=== PATIENT | female | born 1990 | race Caucasian/White ===

== ENCOUNTER 2017-04-03 11:18 | Observation (INO) | payer BC, MEDICAID ==
[2017-04-03 12:17] LABS: ABS Basophils 0 10^3/ul (0-0.2); ABS Eosinophils 0 10^3/ul (0-0.6); ABS Lymphocytes 1.7 10^3/ul (1.0-4.8); ABS Monocytes 0.7 10^3/ul (0-0.8); ABS Neutrophils 9.6 10^3/ul (1.5-7.7); ABS Nucleated RBC 0 10^3/ul; Eosinophil % 0.3 % (0-6); Hematocrit 39 % (35-47); Hemoglobin 13.2 g/dl (12.0-16.0); Lymphocyte % 13.8 % (25-47); Mean Corpuscular HGB Conc 34 g/dl (31-36); Mean Corpuscular Hemoglobin 30 pg (27-31); Mean Corpuscular Volume 88 fL (80-97); Mean Platelet Volume 10 um3 (7.4-10.4); Nucleated Red Blood Cells % 0; Platelet Count 233 10^3/ul (150-450); Red Blood Count 4.41 10^6/ul (4.0-5.4); Red Cell Distribution Width 13 % (10.5-15)
[2017-04-03 12:21] LABS: Urine Appearance Clear; Urine Blood Negative (Negative); Urine Color Yellow; Urine Ketones Negative (Negative); Urine Protein Negative (Negative); Urine Specific Gravity 1.006 (1.010-1.030); Urine Urobilinogen Negative (Negative)
[2017-04-03 12:30] LABS: EGFR Non-African American 102.3 (>60)
[2017-04-03] MEDS ORDERED: Labetalol TAB* 100 MG ONE (13:10)
[2017-04-03] MEDS: Labetalol TAB* 100 MG PO SCH ×2 (19:22→20:47)
[2017-04-04] MEDS ORDERED: Labetalol TAB* 100 MG PO ONE (01:50)
[2017-04-04] MEDS ORDERED: Labetalol TAB* 100 MG ONE (01:52)
[2017-04-04] MEDS: Labetalol TAB* 100 MG PO SCH ×2 (08:37→21:07)
[2017-04-04] MEDS: Betamethasone INJ* 6 MG/ML 5 ML VIAL (30 MG) IM ONE (10:07)
--- NOTE | 2017-04-04 13:47 | RAD ---
HISTORY: Routine evaluation of growth and biophysical parameters. Other medical history includes hypertension and diabetes. Gestational age indicated by first trimester ultrasound (images not available at the time of this interpretation) is 35 weeks and 6 days. Multiple transabdominal real time images of the gravid uterus were obtained. This exam demonstrates a single intrauterine in the breech presentation. heart and limb motion were noted. The heart rate was 153 beats per minute. The placenta was located anteriorly. There is no placenta previa. The amniotic fluid volume appeared to be within normal limits with an amniotic fluid index of 13.9 cm. Biparietal diameter (cm) 8.9 which corresponds to a gestational age of 36 weeks and 1 day. Head circumference (cm) 35.7 which corresponds to a gestational age of 41 weeks and 5 days. Abdominal circumference(cm) 31.7 which corresponds to a gestational age of 35 weeks and 5 days. Femur length (cm) 6.4 which corresponds to a gestational age of 33 weeks and 3 days. The composite estimated gestational age was 37 weeks and 4 days. The estimated weight at this time is 6 lbs. 0 oz. IMPRESSION: 1. Biophysical score is 8 out of 8. 2. Growth parameters yielding an average gestational age of 37 weeks and 4 days. The L wire amongst the growth parameters is the head circumference measuring 35.6 cm corresponding to a gestational age of 41 weeks and 5 days. This is between 5 and 8 weeks greater than the remaining growth parameters. 3. The gestation is currently in the breech presentation.
--- NOTE | 2017-04-04 21:04 | HP ---
ADMISSION HISTORY AND PHYSICAL: DATE OF ADMISSION: 04/03/17 HISTORY OF PRESENT ILLNESS: Mrs. Callahan is a 27-year-old with an intrauterine at 35 and 6/7 weeks estimated gestational age who was sent Labor and Delivery by Dr. Navin Trinidad for evaluation of possible hypertension at the office to rule out preeclampsia. The patient's care has been complicated by morbid obesity. She has a BMI of 53 and also the patient has diabetes that is diet controlled. Please refer to the patient's full record in the chart. PAST MEDICAL HISTORY: Obesity. PAST SURGICAL HISTORY: None. OBSTETRICAL HISTORY: This is her second . She had one prior . GYNECOLOGIC HISTORY: She had history of Chlamydia in 2010. SOCIAL HISTORY: Denies cigarette, alcohol, or drug use. FAMILY HISTORY: Significant for hypothyroidism, COPD, and multiple sclerosis. REVIEW OF SYSTEMS: The patient denied any constitutional signs of symptoms. No fever. No chills. No gastrointestinal or urinary signs or symptoms. She denies headaches, changes in vision, or abdominal pain. Admitted to palpable movements. PHYSICAL EXAMINATION GENERAL: The patient was in Labor and Delivery bed. Awake and oriented x3, in no apparent distress. VITAL SIGNS: Temperature of 99.5, pulse ox of 96% on room air, respiratory rate of 20, the pulse was in 70 to 80s, and her blood pressure ranged systolically from 154 to 170 and diastolics were 81 to 113. and it was noted to be reactive. LUNGS: Clear to auscultation bilaterally. ABDOMEN: She had no CVA tenderness bilaterally. Her abdomen was gravid, soft, nontender with palpable movement. EXTREMITIES: Reflexes are +2 at the upper extremities. Lower extremity reflexes are absent with no clonus. LABORATORY DATA: She had a complete comprehensive metabolic panel, both of which were within normal limits. Urinalysis showed no proteinuria. IMPRESSION: This is a morbidly obese patient with gestational diabetes with elevated blood pressures at the office and here in Labor and Delivery possibly -induced hypertension, which is preeclampsia. She is to be admitted for observation. A 24-hour urine collection is being obtained for evaluation of proteinuria. She is also to be started on labetalol 100 mg p.o. twice a day for hypertension and we will continue to observe and treat the patient based on her clinical signs and symptoms. [id number]/[facility] #: [id number] [facility]
[2017-04-05] MEDS: Labetalol TAB* 100 MG PO SCH (08:51)
[2017-04-05] MEDS: Betamethasone INJ* 6 MG/ML 5 ML VIAL (30 MG) IM ONE (10:05)
--- NOTE | 2017-04-06 03:46 | DS ---
DISCHARGE SUMMARY: DATE OF ADMISSION: 04/03/17 DATE OF DISCHARGE: 04/05/17 HOSPITAL COURSE: This patient is a 27-year-old, 1 para 0, sent from the office at 35 plus 6 weeks gestation with significantly elevated blood pressures. On presentation, she continued to have moderate to severely elevated blood pressures. Blood testing all returned within normal limits. monitoring was very reassuring and a 24-hour urine protein collection was started. A 24-hour urine protein returned on hospital day#2 at 290 mg. A ultrasound was performed and weight was measured at about 6 pounds. Amniotic fluid was 13.9 and the fetus was still in the breech presentation. The patient was initially started on labetalol 100 mg b.i.d. On bedrest, the patient's blood pressures came down to 120s to 140s/70s to 90s. monitoring remained very reassuring during her hospital stay. She is discharged to home in stable condition on hospital day#3 with plans for close followup. DISCHARGE PHYSICAL EXAMINATION: Vital Signs: Blood pressure 140s/80s. heart tracing reactive with no decelerations and many accelerations. No significant contractions noted. Abdomen: Soft and nontender. LABORATORY INFORMATION: Hematocrit 39, platelets 233. Creatinine 0.68, uric acid 4.4. AST 12, ALT 9. 24-hour urine protein 290 mg. DISCHARGE INSTRUCTIONS: The patient was instructed to return to Labor and Delivery in 3 days, on 04/08/17, for repeat blood pressure monitoring, monitoring, and repeat labs. She will also return a 24-hour urine collection for protein. The patient has received 2 doses of betamethasone to assist with lung maturity. She will continue to monitor her blood sugars as she was doing prior to admission. She was given strict precautions to return if she has any significant headache, right upper quadrant pain, shortness of breath, or visual changes. DISCHARGE DIAGNOSES: Morbid obesity at 36 weeks' gestation with gestational hypertension and gestational diabetes. DISCHARGE MEDICATIONS: 1. vitamins. 2. Labetalol 100 mg b.i.d. [id number]/[facility] #: [id number] MTDJose
== END 2017-04-05 11:20 | disposition home or self-care (01) ==
LOC: MCHOBOUT 11:18 → MCHOB 12:52
PROVIDERS: ADMIT Obstetrics & Gynecology; ATTEND Obstetrics & Gynecology
DX: E66.01 Morbid (severe) obesity due to excess calories (principal); O24.410 Gestational diabetes mellitus in pregnancy, diet controlled; I10 Essential (primary) hypertension; Z3A.35 35 weeks gestation of pregnancy; Z68.43 Body mass index [BMI] 50.0-59.9, adult
CPT/HCPCS: 36415; 76815; 80053; 81003; 84156; 84550; 85025; 86762; 96372; 99214; A9270-GY; G0378; G0463; J0702

== ENCOUNTER 2017-04-12 10:11 | Inpatient (IN) | payer BC, MEDICAID ==
[2017-04-12] MEDS ORDERED: Famotidine IV* 10 MG/ML 2 ML (20 mg) IV ONE (14:10)
[2017-04-12] MEDS ORDERED: NS 0.9% 100 ML* 100 ML with ceFOXitin(*) 2 GM IVPB ONE ×2 (16:49)
[2017-04-12] MEDS ORDERED: fentaNYL* 50 MCG/ML 5 ML VIAL (250 MCG VIAL) ONE (17:03)
[2017-04-12] MEDS ORDERED: Morphine PF AMP (0.5MG/ML)* 5 MG/10 ML AMP ONE (17:03)
[2017-04-12] MEDS ORDERED: Midazolam* 1 MG/ML 10 ML VIAL (10 MG) ONE (17:03)
[2017-04-12] MEDS ORDERED: Heparin VIAL(*) 5000 UNITS/ML VIAL (FIVE THOUSAND) ONE (17:28)
[2017-04-12] MEDS ORDERED: diPHENhydraMINE IV* 50 MG/ML 1 ml VIAL (BENADRYL) IV PRN (18:19)
[2017-04-12] MEDS ORDERED: Nalbuphine* 20 MG/ML 1 ML VIAL IV PRN (18:19)
[2017-04-12] MEDS ORDERED: Naloxone* 0.4 MG/ML 1 ML VIAL IV PRN ×2 (18:19→18:21)
[2017-04-12] MEDS ORDERED: Naloxone* 2 MG in NS 0.9% 250 ML* 250 ML IV PRN (18:19)
[2017-04-12] MEDS ORDERED: Ondansetron INJ* 2 MG/ML VIAL IV PRN (18:19)
[2017-04-12] MEDS ORDERED: PROCHLORPERAZINE INJ 5 MG/ML 2 ML VIAL IV PRN (18:19)
[2017-04-12] MEDS ORDERED: Scopolamine PATCH Remove* 1 NOTE MISC PATCH OFF PRN (18:19)
[2017-04-12] MEDS ORDERED: fentaNYL* 50 MCG/ML 2 ML VIAL (100 MCG VIAL) IV PRN (18:21)
[2017-04-12] MEDS ORDERED: OXYTOCIN* 10 UNITS/ML 1 ML VIAL ONE (18:56)
[2017-04-12] MEDS ORDERED: Scopolamine 1.5 mg* PATCH ONE (18:56)
[2017-04-12] MEDS ORDERED: Dexamethasone IV* 4 MG/ML 1 ML (4 MG) ONE (18:56)
[2017-04-12] MEDS ORDERED: EPHEDrine (Pressors)* 50 MG/ML VIAL ONE (18:56)
[2017-04-12] MEDS ORDERED: Ondansetron INJ* 2 MG/ML VIAL ONE (18:56)
[2017-04-12] MEDS ORDERED: Phenylephrine INJ* 10 MG/ML 1 ML VIAL (10 MG) ONE (18:56)
[2017-04-12] MEDS ORDERED: Bupivacaine 0.5% SDV PF* 10-30ML VIAL ONE (18:56)
[2017-04-12] MEDS ORDERED: Acetaminophen TAB* 325 MG PO PRN (19:14)
[2017-04-12] MEDS ORDERED: Measles, Mumps,Rubella VACC* 0.5 ML/VIAL SUBCUT ONE (19:14)
[2017-04-12] MEDS ORDERED: Witch Hazel PAD* JAR TOPICAL PRN (19:14)
[2017-04-12] MEDS ORDERED: Glycerin ADULT SUPP PR PRN (19:14)
[2017-04-12] MEDS ORDERED: Dibucaine 1% 28.35 GM TUBE PR PRN (19:14)
[2017-04-12] MEDS ORDERED: Zolpidem TAB* 5 MG PO PRN (19:14)
[2017-04-12] MEDS ORDERED: Oxytocin in LR* 20 UNITS/1,000 ML BAG IVPB SCH (20:00)
[2017-04-12] MEDS: Docusate CAP* 100 MG PO SCH (21:32)
[2017-04-12] MEDS: Labetalol TAB* 100 MG PO SCH (21:39)
[2017-04-12] MEDS: Simethicone TAB* 80 MG TAB.CHEW PO SCH (21:39)
[2017-04-12] MEDS: Ibuprofen TAB* 600 MG PO PRN (23:37)
[2017-04-12] MEDS: oxyCODONE/Acetamin 5/325 MG* TAB PO PRN (23:37)
[2017-04-13] MEDS: Heparin VIAL(*) 5000 UNITS/ML VIAL (FIVE THOUSAND) SUBCUT SCH ×3 (00:53→20:33)
[2017-04-13] MEDS: oxyCODONE/Acetamin 5/325 MG* TAB PO PRN ×3 (04:04→17:56)
[2017-04-13] MEDS ORDERED: Labetalol IV* 5 MG/ML 20 ML VIAL ONE (04:39)
[2017-04-13] MEDS ORDERED: Labetalol IV* 5 MG/ML 20 ML VIAL IV PUSH ONE (05:00)
[2017-04-13] MEDS: Ibuprofen TAB* 600 MG PO PRN ×2 (06:54→17:56)
[2017-04-13 07:55] LABS: ABS Basophils 0 10^3/ul (0-0.2); ABS Eosinophils 0 10^3/ul (0-0.6); ABS Lymphocytes 1.9 10^3/ul (1.0-4.8); ABS Monocytes 1.2 10^3/ul (0-0.8); ABS Neutrophils 15.9 10^3/ul (1.5-7.7); ABS Nucleated RBC 0 10^3/ul; Eosinophil % 0.1 % (0-6); Hematocrit 34 % (35-47); Hemoglobin 11.6 g/dl (12.0-16.0); Mean Corpuscular HGB Conc 34 g/dl (31-36); Mean Corpuscular Hemoglobin 30 pg (27-31); Mean Corpuscular Volume 89 fL (80-97); Mean Platelet Volume 11 um3 (7.4-10.4); Nucleated Red Blood Cells % 0; Platelet Count 209 10^3/ul (150-450); Red Blood Count 3.84 10^6/ul (4.0-5.4); Red Cell Distribution Width 13 % (10.5-15)
[2017-04-13 08:13] LABS: INR 0.88 (0.77-1.02)
[2017-04-13] MEDS: Ferrous Gluconate TAB* 324 MG TAB PO SCH (08:38)
[2017-04-13] MEDS: Docusate CAP* 100 MG PO SCH ×3 (08:52→20:33)
[2017-04-13] MEDS: Simethicone TAB* 80 MG TAB.CHEW PO SCH ×4 (08:52→20:33)
[2017-04-13] MEDS: Labetalol TAB* 100 MG PO SCH ×2 (08:53→20:33)
--- NOTE | 2017-04-13 14:35 | OP ---
DATE OF OPERATION: 04/12/17 - ROOM #105 DATE OF : 86 SURGEON: Kalpesh Sy MD. CLOTHES DESIGNER: Dr. Boogie and Leesa Murillo CNM. ANESTHESIA: Spinal with Duramorph. PRE-OP DIAGNOSES: Preeclampsia, breech presentation, gestational diabetes, and morbid obesity. POST-OP DIAGNOSES: Preeclampsia, breech presentation, gestational diabetes, and morbid obesity. OPERATIVE PROCEDURE: Low transverse section. ESTIMATED BLOOD LOSS: 600 cc. INDICATIONS: This is a 27-year-old 2, para 0 who presented at 37 weeks with gestational hypertension initially and then developed proteinuria of over 500 mg making her mildly preeclamptic. We discussed the options of external cephalic version with much thought that that would be a good option given her size and difficulty with induction. We discussed the risks, benefits, and alternatives, and indications of section including above and after discussion, she opted for for treatment. FINDINGS: At the time of , she had a viable male. Apgars were 9 and 9 , weight was 6 pounds 13 ounces. There was normal-appearing fallopian tubes and ovaries. The uterus appeared normal. DESCRIPTION OF PROCEDURE: The patient identified and procedure identified as a low transverse section. The patient was taken to the operating room and prepped and draped in the usual fashion in the left lateral recumbent position under spinal anesthesia. When she was prepped and draped, we used the traxi adhesive to bring up her panniculus and a Pfannenstiel incision was made in the abdomen and carried down through fat, fascia, and peritoneum. An Kunal retractor was placed in the incision. A transverse incision was made in the lower uterine segment and extended laterally using the bandage scissors. The above was initially attempted to be delivered in the saul breech presentation. When it was difficult to get this through, we were able to grasp both feet and bring the baby out in a breech extraction manner without difficulty. Nuchal cord was noted x3. The cord was doubly clamped and cut, and the infant was handed to the awaiting youth development specialist. Cord blood was obtained. Placenta was delivered spontaneously. The uterus was wiped out with a wet lap sponge. The uterine incision was then closed using 0 Polysorb in a running fashion. A second layer was used to imbricate the first layer. Good hemostasis was verified in the peritoneal space. The peritoneum was closed using a FISH after the Kunal had been removed and using 3-0 Polysorb in a running fashion. Good hemostasis in the subrectus layers. The fascia was closed using 0 Polysorb in a running fashion. 3-0 Polysorb sutures were used to close the space and Anya's fascia. After copious irrigation had been utilized and suctions out, good hemostasis again verified, and the skin was closed with 4-0 Monocryl in a subcuticular fashion and Steri-Strips were applied. All sponge and instrument counts were correct and the patient returned to the recovery room in a stable condition. [id number]/[facility] #: [id number] [employer]
[2017-04-14] MEDS: oxyCODONE/Acetamin 5/325 MG* TAB PO PRN ×4 (02:28→18:48)
[2017-04-14] MEDS: Simethicone TAB* 80 MG TAB.CHEW PO SCH ×4 (08:18→21:08)
[2017-04-14] MEDS: Ibuprofen TAB* 600 MG PO PRN ×3 (08:18→21:08)
[2017-04-14] MEDS: Docusate CAP* 100 MG PO SCH ×3 (08:18→21:07)
[2017-04-14] MEDS: Labetalol TAB* 100 MG PO SCH ×2 (09:14→21:08)
[2017-04-14] MEDS: Heparin VIAL(*) 5000 UNITS/ML VIAL (FIVE THOUSAND) SUBCUT SCH ×2 (09:14→21:08)
[2017-04-14] MEDS: Ferrous Gluconate TAB* 324 MG TAB PO SCH (09:45)
[2017-04-14 19:59] VITALS: BP 150/64
[2017-04-15] MEDS: oxyCODONE/Acetamin 5/325 MG* TAB PO PRN ×3 (00:18→11:52)
[2017-04-15 06:34] LABS: ABS Basophils 0 10^3/ul (0-0.2); ABS Eosinophils 0.3 10^3/ul (0-0.6); ABS Lymphocytes 2.3 10^3/ul (1.0-4.8); ABS Monocytes 0.8 10^3/ul (0-0.8); ABS Neutrophils 6.5 10^3/ul (1.5-7.7); ABS Nucleated RBC 0 10^3/ul; Eosinophil % 2.7 % (0-6); Hematocrit 37 % (35-47); Hemoglobin 12.7 g/dl (12.0-16.0); Lymphocyte % 23.4 % (25-47); Mean Corpuscular HGB Conc 34 g/dl (31-36); Mean Corpuscular Hemoglobin 31 pg (27-31); Mean Corpuscular Volume 89 fL (80-97); Mean Platelet Volume 9 um3 (7.4-10.4); Nucleated Red Blood Cells % 0.1; Platelet Count 242 10^3/ul (150-450); Red Blood Count 4.15 10^6/ul (4.0-5.4); Red Cell Distribution Width 13 % (10.5-15)
[2017-04-15] MEDS: Ibuprofen TAB* 600 MG PO PRN ×2 (06:39→12:33)
[2017-04-15] MEDS: Docusate CAP* 100 MG PO SCH (08:53)
[2017-04-15] MEDS: Heparin VIAL(*) 5000 UNITS/ML VIAL (FIVE THOUSAND) SUBCUT SCH (08:53)
[2017-04-15] MEDS: Simethicone TAB* 80 MG TAB.CHEW PO SCH ×2 (08:53→14:46)
[2017-04-15] MEDS: Labetalol TAB* 100 MG PO SCH (08:53)
[2017-04-16] MEDS ORDERED: Aspirin Low Dose CHEW TAB* 81 MG PO SCH (09:00)
== END 2017-04-15 15:00 | disposition home or self-care (01) | DRG 540 ==
LOC: MCHOBOUT 10:11 → MCHOB 10:43
PROVIDERS: ADMIT Obstetrics & Gynecology; ATTEND Obstetrics & Gynecology
PROC: 10D00Z1 Extraction of Products of Conception, Low, Open Approach (ICD-10-PCS; principal; 2017-04-12 17:28)
DX: O32.8XX0 Maternal care for other malpresentation of fetus, not applicable or unspecified (principal); Z68.43 Body mass index [BMI] 50.0-59.9, adult; E66.01 Morbid (severe) obesity due to excess calories; O14.04 Mild to moderate pre-eclampsia, complicating childbirth; O24.420 Gestational diabetes mellitus in childbirth, diet controlled; O99.214 Obesity complicating childbirth; O99.824 Streptococcus B carrier state complicating childbirth; Z3A.37 37 weeks gestation of pregnancy; Z37.0 Single live birth
CPT/HCPCS: 36415; 85025; 85610; 85730; 86850; 86900; 86901; 90707; A9270-GY; J0694; J0780; J1100; J1644; J2250; J2405; J2590; J3010

== ENCOUNTER 2019-02-11 13:12 | Emergency (ER) | payer MEDICAID, OTHER ==
[2019-02-11 13:58] LABS: Urine Appearance Clear; Urine Bilirubin Negative (Negative); Urine Blood 3+ (Negative); Urine Color Straw; Urine Glucose Negative (Negative); Urine Ketones Negative (Negative); Urine Nitrite Negative (Negative); Urine Protein Negative (Negative); Urine Specific Gravity 1.005 (1.010-1.030); Urine Urobilinogen Negative (Negative)
[2019-02-11 14:03] LABS: ABS Basophils 0.1 10^3/ul (0-0.2); ABS Eosinophils 0.1 10^3/ul (0-0.6); ABS Lymphocytes 2.3 10^3/ul (1.0-4.8); ABS Monocytes 0.8 10^3/ul (0-0.8); ABS Neutrophils 7.3 10^3/ul (1.5-7.7); Hematocrit 38 % (35-47); Hemoglobin 13.1 g/dL (12.0-16.0); Lymphocyte % 21.6 %; Mean Corpuscular HGB Conc 35 g/dL (31-36); Mean Corpuscular Hemoglobin 30 pg (27-31); Mean Corpuscular Volume 87 fL (80-97); Mean Platelet Volume 8.4 fL (7.4-10.4); Platelet Count 315 10^3/uL (150-450); Red Blood Count 4.35 10^6 /uL (3.70-4.87); Red Cell Distribution Width 13 % (10-15); White Blood Count 10.5 10^3/uL (3.5-10.8)
[2019-02-11 14:06] LABS: Urine Bacteria Absent (Absent); Urine Red Blood Cell Trace(0-2/hpf) (Absent); Urine Squamous Epithelial Cell Present (Absent); Urine White Blood Cell Absent (Absent)
[2019-02-11 14:11] LABS: Activated Partial Thrombo Time 32.7 seconds (26.0-38.0); INR 1.03 (0.82-1.09)
[2019-02-11 14:18] LABS: Albumin 4.3 g/dL (3.2-5.2); Albumin/Globulin Ratio 1.5 (1-3); BUN/Creatinine Ratio 11.7 (8-20); Calcium 9.5 mg/dL (8.6-10.3); EGFR African American 105.8 (>60); EGFR Non-African American 87.4 (>60); Globulin 2.8 g/dL (2-4); Potassium 4.4 mmol/L (3.5-5.0); Total Bilirubin 0.3 mg/dL (0.2-1.0); Total Protein 7.1 g/dL (6.4-8.9)
--- NOTE | 2019-02-11 14:36 | ED ---
- HPI Summary HPI Summary: This patient is a 29 year old F presenting to [facility] with a chief complaint of unexpected bleeding during 9th month of since this morning 02/11/19. Symptoms aggravated by nothing. Symptoms alleviated by nothing. Patient reports big clot and heavy at first but reports it may have slowed down since onset. Pt reports no US has been taken yet as her first one was scheduled to be on February 25. Last menstrual period was December 05-2018. Pt reports this is her 2nd with the prior having no issues until the end where the baby had preeclampsia and pt had an emergency (cord was wrapped). - History of Current Complaint Chief Complaint: EDOBProblems Stated Complaint: POSS MISCARRIAGE PER PT Time Seen by Provider: 02/11/19 14:17 Hx Obtained From: Patient Onset/Duration: Started Hours Ago, Still Present Pain Intensity: 0 Location of Pain: None Aggravating Factors: Nothing Alleviating Factors: Nothing - Assessment SAB: 1 IEA: 0 - Additional Pertinent History Maternal Blood Type and Rh: O Positive - Allergies/Home Medications Allergies/Adverse Reactions: Allergies Allergy/AdvReac Type Severity Reaction Status Date / Time No Known Allergies Allergy Verified 02/11/19 13:32 Home Medications: Home Medications Labetalol TAB* [Trandate TAB*] 100 mg PO DAILY 02/11/19 [History Confirmed 02/11] Levothyroxine TAB* [Synthorid 112 MCG TAB*] 112 mcg PO QAM 02/11/19 [History Confirmed 02/11/19] PMH/Surg Hx/FS Hx/Imm Hx Endocrine/Hematology History: Denies: Hx Diabetes, Hx Thyroid Disease Cardiovascular History: Denies: Hx Hypertension Respiratory History: Denies: Hx Asthma, Hx Chronic Obstructive Pulmonary Disease (COPD) GI History: Reports: Hx Ulcer - gerd Psychiatric History: Reports: Hx Anxiety, Hx Depression - Surgical History Surgery Procedure, Year, and Place: Infectious Disease History: No Infectious Disease History: Denies: Hx Clostridium Difficile, Hx Hepatitis, Hx Human Immunodeficiency Virus (HIV), Hx of Known/Suspected MRSA, Hx Shingles, Hx Tuberculosis, Traveled Outside the [place] in Last 30 Days - Family History Known Family History: Positive: Hypertension, Other - thyroid issues - Social History Alcohol Use: None Substance Use Type: Reports: None Smoking Status (MU): Never Smoked Tobacco Review of Systems Negative: Fever Positive: other - unexpected bleeding, All Other Systems Reviewed And Are Negative: Yes Physical Exam - Summary Physical Exam Summary: Constitutional: Well-developed, Well-nourished, Alert. tearful Skin: Warm, Dry HENT: Normocephalic; Atraumatic Eyes: Conjunctiva normal Neck: Musculoskeletal ROM normal neck. (-) JVD, (-) Stridor, (-) Nuchal rigidity Cardio: Rhythm regular, rate normal, Heart sounds normal; Intact distal pulses; Radial pulses are 2+ and symmetric. (-) Murmur Pulmonary/Chest wall: Effort normal. (-) Respiratory distress, (-) Wheezes, (-) Rales Abd: Soft, (-) tenderness, (-) Distension, (-) Guarding, (-) Rebound Musculoskeletal: (-) Edema Lymph: (-) Cervical adenopathy Neuro: Alert, Oriented x3 Psych: Mood and affect Normal - Physical Exam Triage Information Reviewed: Yes Vital Signs Reviewed: Yes Procedures - Sedation Patient Received Moderate/Deep Sedation with Procedure: No Diagnostics - Vital Signs Vital Signs Temp Pulse Resp BP Pulse Ox 02/11/19 13:27 98.8 F 92 16 172/101 98 - Laboratory Lab Results: Lab Results 02/11/19 02/11/19 02/11/19 Range/Units 13:28 13:50 13:50 WBC 10.5 (3.5-10.8) 10^3/uL RBC 4.35 (3.70-4.87) 10^6 /uL Hgb 13.1 (12.0-16.0) g/dL Hct 38 (35-47) % MCV 87 (80-97) fL MCH 30 (27-31) pg MCHC 35 (31-36) g/dL RDW 13 (10-15) % Plt Count 315 (150-450) 10^3/uL MPV 8.4 (7.4-10.4) fL Neut % (Auto) 69.2 % Lymph % (Auto) 21.6 % Blair % (Auto) 7.4 % Eos % (Auto) 1.0 % Baso % (Auto) 0.8 % Absolute Neuts (auto) 7.3 (1.5-7.7) 10^3/ul Absolute Lymphs (auto) 2.3 (1.0-4.8) 10^3/ul Absolute Monos (auto) 0.8 (0-0.8) 10^3/ul Absolute Eos (auto) 0.1 (0-0.6) 10^3/ul Absolute Basos (auto) 0.1 (0-0.2) 10^3/ul Absolute Nucleated RBC 0.0 10^3/ul Nucleated RBC % 0.0 INR (Anticoag Therapy) 1.03 (0.82-1.09) APTT 32.7 (26.0-38.0) seconds Sodium (135-145) mmol/L Potassium (3.5-5.0) mmol/L Chloride (101-111) mmol/L Carbon Dioxide (22-32) mmol/L Anion Gap (2-11) mmol/L BUN (6-24) mg/dL Creatinine (0.51-0.95) mg/dL Est GFR ( Amer) (>60) Est GFR (Non-Af Amer) (>60) BUN/Creatinine Ratio (8-20) Glucose (70-100) mg/dL Calcium (8.6-10.3) mg/dL Total Bilirubin (0.2-1.0) mg/dL AST (13-39) U/L ALT (7-52) U/L Alkaline Phosphatase (34-104) U/L Total Protein (6.4-8.9) g/dL Albumin (3.2-5.2) g/dL Globulin (2-4) g/dL Albumin/Globulin Ratio (1-3) Beta HCG, Quant Urine Color Straw Urine Appearance Clear Urine pH 6.0 (5-9) Ur Specific [place] 1.005 L (1.010-1.030) Urine Protein Negative (Negative) Urine Ketones Negative (Negative) Urine Blood 3+ A (Negative) Urine Nitrate Negative (Negative) Urine Bilirubin Negative (Negative) Urine Urobilinogen Negative (Negative) Ur Leukocyte Esterase Negative (Negative) Urine WBC (Auto) Absent (Absent) Urine RBC (Auto) Trace(0-2/hpf) (Absent) Ur Squamous Epith Cells Present A (Absent) Urine Bacteria Absent (Absent) Urine Glucose Negative (Negative) Blood Type Antibody Screen 02/11/19 02/11/19 Range/Units 13:50 13:50 WBC (3.5-10.8) 10^3/uL RBC (3.70-4.87) 10^6 /uL Hgb (12.0-16.0) g/dL Hct (35-47) % MCV (80-97) fL MCH (27-31) pg MCHC (31-36) g/dL RDW (10-15) % Plt Count (150-450) 10^3/uL MPV (7.4-10.4) fL Neut % (Auto) % Lymph % (Auto) % Blair % (Auto) % Eos % (Auto) % Baso % (Auto) % Absolute Neuts (auto) (1.5-7.7) 10^3/ul Absolute Lymphs (auto) (1.0-4.8) 10^3/ul Absolute Monos (auto) (0-0.8) 10^3/ul Absolute Eos (auto) (0-0.6) 10^3/ul Absolute Basos (auto) (0-0.2) 10^3/ul Absolute Nucleated RBC 10^3/ul Nucleated RBC % INR (Anticoag Therapy) (0.82-1.09) APTT (26.0-38.0) seconds Sodium 136 (135-145) mmol/L Potassium 4.4 (3.5-5.0) mmol/L Chloride 104 (101-111) mmol/L Carbon Dioxide 27 (22-32) mmol/L Anion Gap 5 (2-11) mmol/L BUN 9 (6-24) mg/dL Creatinine 0.77 (0.51-0.95) mg/dL Est GFR ( Amer) 105.8 (>60) Est GFR (Non-Af Amer) 87.4 (>60) BUN/Creatinine Ratio 11.7 (8-20) Glucose 96 (70-100) mg/dL Calcium 9.5 (8.6-10.3) mg/dL Total Bilirubin 0.30 (0.2-1.0) mg/dL AST 14 (13-39) U/L ALT 14 (7-52) U/L Alkaline Phosphatase 68 (34-104) U/L Total Protein 7.1 (6.4-8.9) g/dL Albumin 4.3 (3.2-5.2) g/dL Globulin 2.8 (2-4) g/dL Albumin/Globulin Ratio 1.5 (1-3) Beta HCG, Quant Pending Urine Color Urine Appearance Urine pH (5-9) Ur Specific [place] (1.010-1.030) Urine Protein (Negative) Urine Ketones (Negative) Urine Blood (Negative) Urine Nitrate (Negative) Urine Bilirubin (Negative) Urine Urobilinogen (Negative) Ur Leukocyte Esterase (Negative) Urine WBC (Auto) (Absent) Urine RBC (Auto) (Absent) Ur Squamous Epith Cells (Absent) Urine Bacteria (Absent) Urine Glucose (Negative) Blood Type O Positive Antibody Screen Pending Result Diagrams: 02/11/19 13:50 02/11/19 13:50 Lab Statement: Any lab studies that have been ordered have been reviewed, and results considered in the medical decision making process. - Ultrasound Transvaginal US Ultrasound Interpretation Completed By: Radiologist Summary of Ultrasound Findings: Per radiologist,. Single intrauterine gestation with a gestational age of 9 weeks 4 days. Estimated date of delivery is September 12, 2019. heart activity at 165 bpm. ED physician has reviewed this imaging report. Re-Evaluation - Re-Evaluation First Eval Re-Evaluation Time: 16:52 Comment: Pt is updated on results of US and will be discharged. Course/Dx - Course Course Of Treatment: 29 y/o at approx 9 is presents with vaginal bleeding. Physical exam w well-appearing female abdomen soft. Labs notable: O positive, stable Hb. - Ultrasound shows single intrauterine at gestation 9 weeks 5 days, positive cardiac activity. Discussed with her that this is a threatened miscarriage, will follow up w OB. - Diagnoses Provider Diagnoses: Threatened miscarriage Discharge ED - Sign-Out/Discharge Documenting (check all that apply): Patient Departure - discharge - Discharge Plan Condition: Stable Disposition: HOME Patient Education Materials: Threatened Miscarriage (ED) Referrals: Kalpesh Sy MD [Medical Doctor] - 3 Days (Call within the next 3 days) Additional Instructions: You were seen in the emergency department for . Vaginal bleeding. Your ultrasound showed your at approximately 9 weeks 5 days, with a heart rate in the 160s. Please follow up with your primary care doctor in next 2-3 days and return to emergency department for worsening bleeding, abdominal pain, or concerning symptoms. It was a pleasure taking care of you today. - Billing Disposition and Condition Condition: STABLE Disposition: Home - Attestation Statements Document Initiated by Jenniferibdoyle: Yes Documenting Scribe: Toyin Arias Provider For Whom Mariza is Documenting (Include Credential): Dr. Evon Salcedo MD Scribe Attestation: Toyin Aguiar, scribed for Dr. Evon Salcedo MD on 02/11/19 at 1905. Scribe Documentation Reviewed: Yes Provider Attestation: The documentation as recorded by the Toyin santana accurately reflects the service I personally performed and the decisions made by me, Dr. Evon Salcedo MD Status of Scribe Document: Viewed
[2019-02-11 17:04] VITALS: BP 146/89
== END 2019-02-11 17:03 | disposition home or self-care (01) ==
LOC: ED 13:12
DX: O20.0 Threatened abortion (principal); Z3A.09 9 weeks gestation of pregnancy; O99.341 Other mental disorders complicating pregnancy, first trimester; F41.9 Anxiety disorder, unspecified; F32.9 Major depressive disorder, single episode, unspecified; E03.9 Hypothyroidism, unspecified; Z79.899 Other long term (current) drug therapy
CPT/HCPCS: 36415; 76817; 80053; 81003; 81015; 84702; 85025; 85610; 85730; 86850; 86900; 86901; 99282